=== PATIENT | male | born 1940 | race Caucasian/White ===

== ENCOUNTER 2018-02-11 16:12 | Inpatient (IN) | payer MEDICARE ==
[~2018-02-11] VITALS: Ht 185.4 cm; Wt 88.1 kg
[2018-02-11 17:30] LABS: ALANINE AMINOTRANSFERASE 49 U/L (12-78); ALBUMIN 2.5 g/dL (3.4-5.0); ANION GAP 9 mmol/L (5-15); CALCIUM 8.3 mg/dL (8.5-10.1); CHLORIDE 102 mmol/L (98-107)
[2018-02-11 17:32] LABS: INTERNATIONAL NORMALIZED RATIO 1.32 (0.93-1.1); MEAN CORPUSCULAR HEMOGLOBIN 27.8 pg (27.5-34.5); MEAN CORPUSCULAR HGB CONC 31.9 g/dL (33.2-36.2); MEAN CORPUSCULAR VOLUME 87.1 fL (81-97); MEAN PLATELET VOLUME 6.9 fL (7.4-10.4); PLATELET COUNT 600 x10^3/uL (130-400); PROTHROMBIN TIME 13.7 Seconds (9.6-11.5); RED BLOOD COUNT 3.17 x10^6/uL (4.38-5.82)
[2018-02-11 17:34] LABS: ALKALINE PHOSPHATASE 112 U/L (45-117); BILIRUBIN,TOTAL 0.8 mg/dL (0.2-1.0); FREE T4 (FREE THYROXINE) 1.55 ng/dL (0.76-1.46); TOTAL PROTEIN 7.8 g/dL (6.4-8.2); TROPONIN I < 0.015 ng/mL (0.000-0.045)
[2018-02-11] MEDS ORDERED: ALBUTEROL SULFATE 2.5 MG/3 ML ONE ×2 (17:47→22:27)
[2018-02-11] MEDS ORDERED: ALBUTEROL SULFATE 2.5 MG/3 ML NPPB ONE (18:00)
[2018-02-11 18:06] LABS: MD YES
[2018-02-11 18:07] LABS: LYMPH#(MANUAL) 1.14 x10^3/uL (1-3.4); LYMPHS% (MANUAL) 5 % (22-44); MONOS#(MANUAL) 0.23 x10^3/uL (0.3-2.7); MONOS% (MANUAL) 1 % (2-9); SEG#(MANUAL) 21.43 x10^3/uL (1.8-6.8); SEGS% (MANUAL) 94 % (42-75)
[2018-02-11 18:08] LABS: ANISOCYTOSIS 1+; HYPOCHROMIA 1+; MICROCYTOSIS 1+; POLYCHROMASIA 1+
[2018-02-11 18:09] LABS: <PLATELET ESTIMATE> INCREASED; <PLT MORPHOLOGY> NORMAL PLT MORPH
[2018-02-11 18:10] LABS: MICROSCOPIC AUTO
[2018-02-11 18:28] LABS: CULTURE INDICATED? YES
[2018-02-11] MEDS ORDERED: OMNIPAQUE 350 MG/ML, 100ML BOTTLE ONE (18:43)
[2018-02-11] MEDS ORDERED: PIPERACILLIN/TAZO/PMX 3.375GM 50 ML IVPB ONE (19:30)
[2018-02-11] MEDS ORDERED: SODIUM CHLORIDE 0.9% 1,000ML IVBOLUS ONE (19:30)
[2018-02-11] MEDS ORDERED: VANCOMYCIN 1,600 MG in SODIUM CHLORIDE 0.9% 250 ML IV ONE (19:30)
[2018-02-11] MEDS ORDERED: METRONIDAZOLE PMX 500MG/100ML 100 ML IV ONE (19:30)
[2018-02-11] MEDS ORDERED: VANCOMYCIN PER PHARMACY MC ONE (19:30)
[2018-02-11] MEDS ORDERED: PIPERACILLIN/TAZO/PMX 3.375GM 50 ML ONE (19:31)
[2018-02-11] MEDS ORDERED: APIX5TAB PO (19:40)
[2018-02-11] MEDS ORDERED: LEVO175T5 PO (19:40)
[2018-02-11] MEDS ORDERED: METO25TA35 PO (19:40)
[2018-02-11] MEDS ORDERED: DILT360C26 PO (19:40)
[2018-02-11] MEDS ORDERED: VANCOMYCIN PER PHARMACY MC PRN (20:00)
[2018-02-11] MEDS ORDERED: BISACODYL 10 MG SUPP PR PRN (20:00)
[2018-02-11] MEDS ORDERED: POLYETHYLENE GLYCOL 17 GM PACKET PO PRN (20:00)
[2018-02-11] MEDS ORDERED: ONDANSETRON 2MG/ML, 2ML IVPush PRN (20:00)
[2018-02-11 20:15] VITALS: BP 123/68
[2018-02-11] MEDS ORDERED: PHARMACOKINETIC MONITORING MC PRN (21:30)
[2018-02-11] MEDS ORDERED: PHARMACOKINETIC CONSULTATION MC ONE (21:30)
[2018-02-12] MEDS: PIPERACILLIN/TAZO/PMX 3.375GM 50 ML IV SCH ×3 (01:39→15:25)
[2018-02-12 02:27] VITALS: BP 122/82
[2018-02-12] MEDS ORDERED: ALBUTEROL SULFATE 2.5 MG/3 ML ONE (04:18)
[2018-02-12] MEDS: ALBUTEROL SULFATE 2.5 MG/3 ML NPPB SCH ×5 (04:20→19:15)
[2018-02-12 05:20] LABS: MEAN CORPUSCULAR HEMOGLOBIN 28.9 pg (27.5-34.5); MEAN CORPUSCULAR HGB CONC 32.5 g/dL (33.2-36.2); MEAN CORPUSCULAR VOLUME 88.8 fL (81-97); MEAN PLATELET VOLUME 6.8 fL (7.4-10.4); PLATELET COUNT 562 x10^3/uL (130-400); RED BLOOD COUNT 3.09 x10^6/uL (4.38-5.82); RED CELL DISTRIBUTION WIDTH 17.2 % (9.4-14.8)
[2018-02-12 05:32] LABS: ALANINE AMINOTRANSFERASE 41 U/L (12-78); ALBUMIN 2.4 g/dL (3.4-5.0); ANION GAP 6 mmol/L (5-15); CALCIUM 8.3 mg/dL (8.5-10.1); CHLORIDE 103 mmol/L (98-107); CREATININE 1.16 mg/dL (0.7-1.3)
[2018-02-12 05:35] LABS: ALKALINE PHOSPHATASE 107 U/L (45-117); BILIRUBIN,TOTAL 0.9 mg/dL (0.2-1.0); TOTAL PROTEIN 7.2 g/dL (6.4-8.2)
[2018-02-12 05:49] LABS: MD YES
[2018-02-12 05:51] LABS: <PLATELET ESTIMATE> INCREASED; <PLT MORPHOLOGY> NORMAL PLT MORPH; ANISOCYTOSIS 1+; HYPOCHROMIA 1+; LYMPH#(MANUAL) 0.81 x10^3/uL (1-3.4); LYMPHS% (MANUAL) 4 % (22-44); MONOS% (MANUAL) 2 % (2-9); POLYCHROMASIA 1+; SEG#(MANUAL) 18.99 x10^3/uL (1.8-6.8); SEGS% (MANUAL) 94 % (42-75)
[2018-02-12 05:53] LABS: MICROCYTOSIS 1+
[2018-02-12 06:34] VITALS: BP 125/79
[2018-02-12 07:34] VITALS: BP 117/78
[2018-02-12] MEDS: DILTIAZEM CD 180 MG CAP.ER.24H PO SCH ×2 (07:56→08:40)
[2018-02-12] MEDS ORDERED: SODIUM CHLORIDE 0.9% 1,000 ML IV SCH (08:00)
[2018-02-12] MEDS: SENNA/DOCUSATE TABLET PO SCH (08:40)
[2018-02-12] MEDS: METOPROLOL TARTRATE 25 MG TABLET PO SCH ×2 (08:40→20:14)
[2018-02-12] MEDS ORDERED: APIXABAN 5 MG TABLET PO SCH (09:00)
[2018-02-12] MEDS ORDERED: DIGOXIN 0.25 MG/ML, 2ML IVPush ONE ×2 (11:00→12:00)
[2018-02-12] MEDS ORDERED: MAGNESIUM SULFATE PMX 2GM/50ML 50 ML IV ONE (11:00)
[2018-02-12] MEDS: FLUTICASONE/VILANTEROL 200-25MCG/INH INH SCH (11:16)
[2018-02-12 12:58] VITALS: BP 109/67
[2018-02-12 15:58] VITALS: BP 130/76
[2018-02-12] MEDS: ACETAMINOPHEN 325 MG TABLET PO PRN (19:28)
[2018-02-12 20:00] VITALS: BP 144/86
[2018-02-12] MEDS ORDERED: VANCOMYCIN 1,700 MG in SODIUM CHLORIDE 0.9% 250 ML IV SCH (21:00)
[2018-02-13 02:00] VITALS: BP 137/65
[2018-02-13 05:09] LABS: MEAN CORPUSCULAR HEMOGLOBIN 27.9 pg (27.5-34.5); MEAN CORPUSCULAR HGB CONC 31.9 g/dL (33.2-36.2); MEAN CORPUSCULAR VOLUME 87.7 fL (81-97); MEAN PLATELET VOLUME 6.8 fL (7.4-10.4); PLATELET COUNT 566 x10^3/uL (130-400); RED BLOOD COUNT 2.99 x10^6/uL (4.38-5.82); RED CELL DISTRIBUTION WIDTH 17.5 % (9.4-14.8)
[2018-02-13 05:19] LABS: CHLORIDE 105 mmol/L (98-107)
[2018-02-13 05:25] LABS: ALANINE AMINOTRANSFERASE 40 U/L (12-78); ALBUMIN 2.1 g/dL (3.4-5.0); ALKALINE PHOSPHATASE 100 U/L (45-117); ANION GAP 6 mmol/L (5-15); CALCIUM 8.2 mg/dL (8.5-10.1); CREATININE 1.13 mg/dL (0.7-1.3); TOTAL PROTEIN 6.7 g/dL (6.4-8.2)
[2018-02-13 05:27] LABS: BASOPHILS % (AUTO) 0 % (0-1); EOSINOPHILS # (AUTO) 0.12 x10^3/uL (0-0.4); EOSINOPHILS % (AUTO) 1 % (1-7); LYMPHOCYTES # (AUTO) 0.65 x10^3/uL (1-3.4); LYMPHOCYTES % (AUTO) 3 % (22-44); MD SCAN; MONOCYTES # (AUTO) 0.95 x10^3/uL (0.2-0.8); MONOCYTES % (AUTO) 4 % (2-9); NEUTROPHILS # (AUTO) 19.73 x10^3/uL (1.8-6.8); NEUTROPHILS % (AUTO) 92 % (42-75)
[2018-02-13 07:13] VITALS: BP 122/76
[2018-02-13] MEDS: ALBUTEROL SULFATE 2.5 MG/3 ML NPPB SCH ×4 (07:25→19:59)
[2018-02-13] MEDS: SENNA/DOCUSATE TABLET PO SCH (09:00)
[2018-02-13] MEDS: DILTIAZEM CD 180 MG CAP.ER.24H PO SCH (09:25)
[2018-02-13] MEDS: METOPROLOL TARTRATE 25 MG TABLET PO SCH ×2 (09:25→19:33)
[2018-02-13] MEDS: DIGOXIN 0.125 MG TABLET PO SCH (09:25)
[2018-02-13] MEDS: FLUTICASONE/VILANTEROL 200-25MCG/INH INH SCH (09:25)
[2018-02-13 11:34] VITALS: BP 125/78
[2018-02-13] MEDS ORDERED: NALOXONE 1 MG/ML, 2ML ONE (13:59)
[2018-02-13] MEDS ORDERED: FENTANYL PF 100 MCG/2ML ONE (13:59)
[2018-02-13] MEDS ORDERED: FLUMAZENIL 0.1 MG/1 ML, 5ML ONE (13:59)
[2018-02-13] MEDS ORDERED: MIDAZOLAM 1 MG/ML, 5ML ONE (13:59)
[2018-02-13 15:44] VITALS: BP 111/62
[2018-02-13] MEDS: PIPERACILLIN/TAZO/PMX 4.5GM 100 ML IV SCH (17:59)
[2018-02-13] MEDS: ACETAMINOPHEN 325 MG TABLET PO PRN (19:33)
[2018-02-13 19:37] VITALS: BP 126/70
[2018-02-13 20:00] VITALS: BP 109/69
[2018-02-14 01:11] VITALS: BP 131/65
[2018-02-14] MEDS: PIPERACILLIN/TAZO/PMX 4.5GM 100 ML IV SCH ×3 (02:17→18:25)
[2018-02-14 06:12] LABS: BASOPHILS # (AUTO) 0.01 x10^3/uL (0-0.1); BASOPHILS % (AUTO) 0 % (0-1); EOSINOPHILS # (AUTO) 0.08 x10^3/uL (0-0.4); EOSINOPHILS % (AUTO) 1 % (1-7); LYMPHOCYTES # (AUTO) 0.51 x10^3/uL (1-3.4); LYMPHOCYTES % (AUTO) 4 % (22-44); MD NO; MEAN CORPUSCULAR HEMOGLOBIN 28.1 pg (27.5-34.5); MEAN CORPUSCULAR HGB CONC 31.8 g/dL (33.2-36.2); MEAN CORPUSCULAR VOLUME 88.4 fL (81-97); MONOCYTES # (AUTO) 0.56 x10^3/uL (0.2-0.8); MONOCYTES % (AUTO) 4 % (2-9); NEUTROPHILS # (AUTO) 12.86 x10^3/uL (1.8-6.8); NEUTROPHILS % (AUTO) 92 % (42-75); PLATELET COUNT 580 x10^3/uL (130-400); RED BLOOD COUNT 3.08 x10^6/uL (4.38-5.82); RED CELL DISTRIBUTION WIDTH 17.8 % (9.4-14.8)
[2018-02-14 06:14] LABS: ANION GAP 5 mmol/L (5-15); CALCIUM 8.5 mg/dL (8.5-10.1); CHLORIDE 104 mmol/L (98-107); CREATININE 1.01 mg/dL (0.7-1.3)
[2018-02-14 06:47] VITALS: BP 130/77
[2018-02-14] MEDS: ALBUTEROL SULFATE 2.5 MG/3 ML NPPB SCH ×4 (06:48→20:02)
[2018-02-14] MEDS: SENNA/DOCUSATE TABLET PO SCH (08:06)
[2018-02-14] MEDS: DILTIAZEM CD 180 MG CAP.ER.24H PO SCH (09:42)
[2018-02-14] MEDS: METOPROLOL TARTRATE 25 MG TABLET PO SCH ×2 (09:42→21:31)
[2018-02-14] MEDS: FLUTICASONE/VILANTEROL 200-25MCG/INH INH SCH (09:42)
[2018-02-14] MEDS: DIGOXIN 0.125 MG TABLET PO SCH (09:42)
[2018-02-14 12:47] VITALS: BP 112/55
[2018-02-14 19:01] VITALS: BP 114/66
[2018-02-14] MEDS: APIXABAN 5 MG TABLET PO SCH (21:31)
[2018-02-15 00:32] VITALS: BP 131/70
[2018-02-15] MEDS: PIPERACILLIN/TAZO/PMX 4.5GM 100 ML IV SCH ×3 (02:35→19:25)
[2018-02-15 05:20] LABS: BASOPHILS # (AUTO) 0.07 x10^3/uL (0-0.1); BASOPHILS % (AUTO) 1 % (0-1); EOSINOPHILS # (AUTO) 0.36 x10^3/uL (0-0.4); EOSINOPHILS % (AUTO) 3 % (1-7); LYMPHOCYTES # (AUTO) 0.72 x10^3/uL (1-3.4); LYMPHOCYTES % (AUTO) 6 % (22-44); MD NO; MEAN CORPUSCULAR HEMOGLOBIN 27.7 pg (27.5-34.5); MEAN CORPUSCULAR HGB CONC 31.6 g/dL (33.2-36.2); MEAN CORPUSCULAR VOLUME 87.5 fL (81-97); MEAN PLATELET VOLUME 6.9 fL (7.4-10.4); MONOCYTES # (AUTO) 0.57 x10^3/uL (0.2-0.8); MONOCYTES % (AUTO) 5 % (2-9); NEUTROPHILS % (AUTO) 86 % (42-75); PLATELET COUNT 582 x10^3/uL (130-400); RED BLOOD COUNT 3.13 x10^6/uL (4.38-5.82); RED CELL DISTRIBUTION WIDTH 17.5 % (9.4-14.8)
[2018-02-15 06:48] VITALS: BP 124/65
[2018-02-15] MEDS: ALBUTEROL SULFATE 2.5 MG/3 ML NPPB SCH ×2 (07:20→11:50)
[2018-02-15] MEDS: SENNA/DOCUSATE TABLET PO SCH (09:00)
[2018-02-15 10:35] VITALS: BP 124/73
[2018-02-15] MEDS: FLUTICASONE/VILANTEROL 200-25MCG/INH INH SCH (10:41)
[2018-02-15] MEDS: APIXABAN 5 MG TABLET PO SCH ×2 (10:43→21:39)
[2018-02-15] MEDS: DILTIAZEM CD 180 MG CAP.ER.24H PO SCH (10:43)
[2018-02-15] MEDS: DIGOXIN 0.125 MG TABLET PO SCH (10:43)
[2018-02-15] MEDS: METOPROLOL TARTRATE 25 MG TABLET PO SCH ×2 (10:45→21:39)
[2018-02-15 14:21] VITALS: BP 111/66
[2018-02-15] MEDS ORDERED: ALBUTEROL SULFATE 2.5 MG/3 ML NPPB PRN (15:30)
[2018-02-15 20:00] VITALS: BP 108/62
[2018-02-16] MEDS: PIPERACILLIN/TAZO/PMX 4.5GM 100 ML IV SCH ×3 (03:28→20:40)
[2018-02-16 03:45] VITALS: BP 135/79
[2018-02-16 04:49] LABS: BASOPHILS % (AUTO) 0 % (0-1); EOSINOPHILS # (AUTO) 0.49 x10^3/uL (0-0.4); EOSINOPHILS % (AUTO) 5 % (1-7); LYMPHOCYTES # (AUTO) 0.88 x10^3/uL (1-3.4); LYMPHOCYTES % (AUTO) 8 % (22-44); MD NO; MEAN CORPUSCULAR HEMOGLOBIN 28.3 pg (27.5-34.5); MEAN CORPUSCULAR HGB CONC 32.2 g/dL (33.2-36.2); MEAN CORPUSCULAR VOLUME 87.9 fL (81-97); MEAN PLATELET VOLUME 6.5 fL (7.4-10.4); MONOCYTES # (AUTO) 0.66 x10^3/uL (0.2-0.8); MONOCYTES % (AUTO) 6 % (2-9); NEUTROPHILS # (AUTO) 8.47 x10^3/uL (1.8-6.8); NEUTROPHILS % (AUTO) 81 % (42-75); PLATELET COUNT 624 x10^3/uL (130-400); RED BLOOD COUNT 3.16 x10^6/uL (4.38-5.82); RED CELL DISTRIBUTION WIDTH 17.6 % (9.4-14.8)
[2018-02-16 08:55] VITALS: BP 124/72
[2018-02-16] MEDS: METOPROLOL TARTRATE 25 MG TABLET PO SCH ×2 (08:56→20:40)
[2018-02-16] MEDS: SENNA/DOCUSATE TABLET PO SCH (08:56)
[2018-02-16] MEDS: DILTIAZEM CD 180 MG CAP.ER.24H PO SCH (08:56)
[2018-02-16] MEDS: APIXABAN 5 MG TABLET PO SCH ×2 (08:56→20:40)
[2018-02-16] MEDS: DIGOXIN 0.125 MG TABLET PO SCH (08:56)
[2018-02-16 09:00] VITALS: BP 130/78
[2018-02-16] MEDS: FLUTICASONE/VILANTEROL 200-25MCG/INH INH SCH (09:00)
[2018-02-16] MEDS: LEVOTHYROXINE 175 MCG TABLET PO SCH (12:03)
[2018-02-16 15:31] VITALS: BP 115/61
[2018-02-16 19:20] VITALS: BP 124/74
[2018-02-17 01:28] VITALS: BP 132/76
[2018-02-17] MEDS: PIPERACILLIN/TAZO/PMX 4.5GM 100 ML IV SCH ×3 (05:00→20:40)
[2018-02-17] MEDS: LEVOTHYROXINE 150 MCG TABLET PO SCH (05:00)
[2018-02-17 06:39] VITALS: BP 132/70
[2018-02-17] MEDS: SENNA/DOCUSATE TABLET PO SCH (08:37)
[2018-02-17] MEDS: APIXABAN 5 MG TABLET PO SCH ×2 (08:38→20:40)
[2018-02-17] MEDS: DILTIAZEM CD 180 MG CAP.ER.24H PO SCH (08:38)
[2018-02-17] MEDS: DIGOXIN 0.125 MG TABLET PO SCH (08:38)
[2018-02-17] MEDS: METOPROLOL TARTRATE 25 MG TABLET PO SCH ×2 (08:38→20:40)
[2018-02-17] MEDS: FLUTICASONE/VILANTEROL 200-25MCG/INH INH SCH (08:38)
[2018-02-17 12:36] VITALS: BP 102/58
[2018-02-17 20:39] VITALS: BP 127/65
[2018-02-18 00:39] VITALS: BP 127/80
[2018-02-18] MEDS: PIPERACILLIN/TAZO/PMX 4.5GM 100 ML IV SCH ×3 (06:00→20:45)
[2018-02-18] MEDS: LEVOTHYROXINE 175 MCG TABLET PO SCH (06:15)
[2018-02-18 07:10] VITALS: BP 113/71
[2018-02-18] MEDS: SENNA/DOCUSATE TABLET PO SCH (09:00)
[2018-02-18] MEDS: FLUTICASONE/VILANTEROL 200-25MCG/INH INH SCH (09:49)
[2018-02-18] MEDS: APIXABAN 5 MG TABLET PO SCH ×2 (09:49→20:45)
[2018-02-18] MEDS: DILTIAZEM CD 180 MG CAP.ER.24H PO SCH (09:50)
[2018-02-18] MEDS: DIGOXIN 0.125 MG TABLET PO SCH (09:50)
[2018-02-18] MEDS: METOPROLOL TARTRATE 25 MG TABLET PO SCH ×2 (09:50→20:45)
[2018-02-18 12:55] VITALS: BP 112/64
[2018-02-18 20:06] VITALS: BP 107/63
[2018-02-19 01:53] VITALS: BP 122/71
[2018-02-19] MEDS: PIPERACILLIN/TAZO/PMX 4.5GM 100 ML IV SCH (04:16)
[2018-02-19] MEDS: LEVOTHYROXINE 150 MCG TABLET PO SCH (06:06)
[2018-02-19 08:14] VITALS: BP 116/67
[2018-02-19] MEDS: SENNA/DOCUSATE TABLET PO SCH (09:00)
[2018-02-19] MEDS: METOPROLOL TARTRATE 25 MG TABLET PO SCH (09:47)
[2018-02-19] MEDS: APIXABAN 5 MG TABLET PO SCH (09:47)
[2018-02-19] MEDS: FLUTICASONE/VILANTEROL 200-25MCG/INH INH SCH (09:47)
[2018-02-19] MEDS: DIGOXIN 0.125 MG TABLET PO SCH (09:47)
[2018-02-19] MEDS: DILTIAZEM CD 180 MG CAP.ER.24H PO SCH (09:50)
[2018-02-19] MEDS ORDERED: ACET325T14 PO (11:38)
[2018-02-19] MEDS ORDERED: POLY17PO5 PO (11:38)
[2018-02-19] MEDS ORDERED: FLUT1BLS INH (11:38)
[2018-02-19] MEDS ORDERED: LEVO175T2 PO (11:38)
[2018-02-19] MEDS ORDERED: DILT180C53 PO (11:38)
[2018-02-19] MEDS ORDERED: APIX5TAB PO (11:38)
[2018-02-19] MEDS ORDERED: DIGO125T PO (11:38)
[2018-02-19] MEDS ORDERED: PIPE4.5V3 IV (11:38)
[2018-02-19] MEDS ORDERED: SENN1TAB7 PO (11:38)
[2018-02-19] MEDS ORDERED: LEVO150T PO (11:38)
[2018-02-19] MEDS ORDERED: METO25TA35 PO (11:38)
[2018-02-19] MEDS ORDERED: ONDA4VIA4 IVPush (11:38)
[2018-02-19] MEDS ORDERED: BISA10SU65 PR (11:38)
== END 2018-02-19 15:04 | disposition short-term general hospital (02) | DRG 871 ==
LOC: ED 19:37 → EDIP 19:38 → 4WST 20:18 → 4EST 02-15 17:49
PROVIDERS: ADMIT Hospitalist; ATTEND Hospitalist
PROC: 5A09357 Assistance with Respiratory Ventilation, Less than 24 Consecutive Hours, Continuous Positive Airway Pressure (ICD-10-PCS; principal; 2018-02-12)
PROC: 0W9F30Z Drainage of Abdominal Wall with Drainage Device, Percutaneous Approach (ICD-10-PCS; 2018-02-13)
PROC: 0W9J30Z Drainage of Pelvic Cavity with Drainage Device, Percutaneous Approach (ICD-10-PCS; 2018-02-13)
DX: A41.9 Sepsis, unspecified organism (principal); K65.1 Peritoneal abscess; E43 Unspecified severe protein-calorie malnutrition; J96.20 Acute and chronic respiratory failure, unspecified whether with hypoxia or hypercapnia; I50.33 Acute on chronic diastolic (congestive) heart failure; E87.1 Hypo-osmolality and hyponatremia; D68.59 Other primary thrombophilia; I48.92 Unspecified atrial flutter; J98.11 Atelectasis; K81.0 Acute cholecystitis; D64.9 Anemia, unspecified; E03.9 Hypothyroidism, unspecified; G47.33 Obstructive sleep apnea (adult) (pediatric); I08.0 Rheumatic disorders of both mitral and aortic valves; I11.0 Hypertensive heart disease with heart failure; I48.2 Chronic atrial fibrillation; I71.4 Abdominal aortic aneurysm, without rupture; J44.9 Chronic obstructive pulmonary disease, unspecified; J84.10 Pulmonary fibrosis, unspecified; Z85.46 Personal history of malignant neoplasm of prostate; Z86.79 Personal history of other diseases of the circulatory system; Z87.891 Personal history of nicotine dependence; Z90.79 Acquired absence of other genital organ(s); Z93.3 Colostomy status; Z99.81 Dependence on supplemental oxygen; Z90.49 Acquired absence of other specified parts of digestive tract; Z79.899 Other long term (current) drug therapy; Z68.25 Body mass index [BMI] 25.0-25.9, adult
CPT/HCPCS: 36415; 49405; 71275; 74177; 75989; 80048; 80053; 81001; 83605; 83735; 83880; 84100; 84439; 84443; 84484; 85025; 85610; 86480; 86850; 86900; 87040; 87070; 87075; 87077; 87086; 87186; 87205; 93005; 93306; 94640; 94660; 99156; 99157; 99291; J2250; J2543; J3010; J3370; J7613; Q9967; C1729; C1769; J1160; J2310; J3475; J7030; J7050